=== PATIENT | female | born 1960 | race Caucasian/White ===

== ENCOUNTER → 2018-05-24 | Outpatient (CLI) | payer OTHER ==
[~2018-05-24] MED LIST: LISINOPRIL20 MG PO; PHENTERMINE H37.5 MG PO; PREDNISONE50 MG PO; ROBAXIN 750 MG750 MG PO; TORADOL 10 MG T10 MG PO
== END ==
LOC: M.RAD 15:04
DX: Z12.31 Encounter for screening mammogram for malignant neoplasm of breast (principal); I10 Essential (primary) hypertension